=== PATIENT | female | born 1995 | race Caucasian/White ===

== ENCOUNTER 2022-11-28 21:51 | Outpatient (REF) | payer BC, OTHER, SELFPAY | END 2022-11-28 21:52 | disposition home or self-care (01) | LOC: LAB 21:51 | PROVIDERS: PCP Physician Assistant; Visit Provider Physician Assistant | DX: R10.9 Unspecified abdominal pain (principal); R35.0 Frequency of micturition | CPT/HCPCS: 87086 ==

== ENCOUNTER 2022-12-02 11:19 | Outpatient (OUT) | payer BC, OTHER, SELFPAY ==
--- NOTE | 2022-12-02 11:28 | US_ITS ---
The [address] [address] Patient Name: HYACINTH ALMAZAN MRN: [id number] date: 1995 Sex: F Assigned Patient Location: US Current Patient Location: US Accession/Order Number: [id number] Exam Date: 12/02/2022 11:30 Report Date: 12/02/2022 20:35 At the request of: BOOM JARRELL Procedure: US pelvis EXAM: US pelvis HISTORY: . Abdominal cramping R10.9, Nausea R11.0 . COMPARISON: None. TECHNIQUE: Abdominal scanning was performed FINDINGS: Eating of the pelvis demonstrates an anteverted uterus measuring 9.9 x 5.8 x 4.3 cm. Endometrial complex measures 3 mm. Right ovary measures 1.4 x 2.4 x 3 cm. Color-flow is noted. No masses are noted. Left ovary measures 3.3 x 2.2 x 1.7 cm. Color-flow is noted. No masses are noted. No fluid is noted in the cul-de-sac. IMPRESSION: 1 normal-appearing uterus and endometrial complex. 2. Normal-appearing ovaries. Electronically authenticated by: GIL OLIVIA Date: 12/02/2022 20:35
== END 2022-12-02 11:20 ==
LOC: US 11:21
PROVIDERS: PCP Physician Assistant; Visit Provider Physician Assistant
DX: R10.9 Unspecified abdominal pain (principal); R11.0 Nausea
CPT/HCPCS: 76856